=== PATIENT | female | born 1975 | race Caucasian/White ===

== ENCOUNTER → 2021-08-28 12:55 | Outpatient (CLI) | payer OTHER, SELFPAY ==
--- NOTE | 2021-08-28 | DI.US.S_ITS ---
ULTRASOUND OF RIGHT BREAST: 08/28/2021 CLINICAL: Patient returns today to evaluate a focal asymmetry in the right breast + area pain/palp. Comparison is made to exams dated: 08/28/2021 mammogram - [facility], 06/24/2021 mammogram, 12/13/2019 mammogram - [facility], and 07/11/2016 mammogram - [facility]. Color flow and real-time ultrasound of the right breast were performed. So scale images of the real-time examination were reviewed. There is a 0.6 cm x 0.2 cm x 0.4 cm oval cyst with thin septated internal calle in the right breast at 5 o'clock posterior depth 9 cm from the nipple. This oval cyst is hypoechoic with internal echoes and no posterior acoustic shadowing or enhancement. This correlates with mammography findings. Color flow imaging demonstrates that there is no vascularity present. IMPRESSION: PROBABLY BENIGN The 0.6 cm x 0.2 cm x 0.4 cm oval cyst in the right breast likely represents a complicated cyst and is probably benign. A follow-up right mammogram and an ultrasound in 6 months is recommended to demonstrate stability. There is no abnormality seen in the right breast to correspond with the area of clinical concern, palpable abnormality, and pain at 12 o'clock, however, recommend clinical follow up for persistent or worsening symptoms, or development of any clinically suspicious findings. Additionally, patient has an elevated lifetime risk for breast cancer of greater than 20%. Recommend consideration for screening breast MRI with contrast as an adjunct to screening mammography. Findings and recommendations were conveyed to the patient during today's evaluation. This exam was interpreted at Station ID: [id number]. Electronically Signed By: Rashard Aden M.D. aty/:08/28/2021 14:43:00 letter sent: Followup Recommended Ultrasound BI-RADS: 3 Probably benign
--- NOTE | 2021-08-28 | DI.MG.S_ITS ---
UNILATERAL RIGHT DIGITAL DIAGNOSTIC MAMMOGRAM 3D/2D WITH ADDITIONAL VIEWS: 08/28/2021 CLINICAL: Additional evaluation requested from prior study./ Right breast pain. Comparison is made to exams dated: 06/24/2021 mammogram, 12/13/2019 mammogram - [facility], and 07/11/2016 mammogram - [facility]. The tissue of right breast is extremely dense, which lowers the sensitivity of mammography. Redemonstration of previously described 0.6 cm oval focal asymmetry in the right breast at 5 o'clock posterior depth. This is seen in additional views and appears more prominent compared to previous screening mammogram dated 2019. No other significant masses or calcifications are seen in the breast. IMPRESSION: INCOMPLETE: NEEDS ADDITIONAL IMAGING EVALUATION The 0.6 cm oval focal asymmetry in the right breast resembles a cyst or a lymph node and is indeterminate. An ultrasound is recommended for further evaluation and is scheduled to immediately follow this examination. There is no abnormality seen in the right breast to correspond with the area of clinical concern, palpable abnormality, and pain indicated by square marker at 12 o'clock. An ultrasound is recommended for further evaluation and is scheduled to immediately follow this examination. This exam was interpreted at Station ID: [id number]. NOTE: For mammograms, a report in lay terms will be sent to the patient. Approximately 15% of breast malignancies will not be visualized mammographically. In the management of a palpable breast mass, a negative mammogram must not discourage biopsy of a clinically suspicious lesion. Electronically Signed By: Rashard Aden M.D. aty/:08/28/2021 14:39:20 ACR BI-RADS Category 0: Incomplete [id number]
== END ==
PROVIDERS: PCP Nurse Practitioner Family; Referring Provider Nurse Practitioner Family; Visit Provider Nurse Practitioner Family
DX: R92.8 Other abnormal and inconclusive findings on diagnostic imaging of breast (principal); N60.01 Solitary cyst of right breast
CPT/HCPCS: 76642; 77065; G0279

== ENCOUNTER → 2022-04-19 10:13 | Outpatient (CLI) | payer OTHER, SELFPAY ==
--- NOTE | 2022-04-19 | DI.US.S_ITS ---
ULTRASOUND OF RIGHT BREAST: 04/19/2022 CLINICAL: Patient returns for a 6 month follow up of the right breast. Comparison is made to exams dated: 04/19/2022 mammogram, 08/28/2021 ultrasound, and 08/28/2021 mammogram - [facility]. Color flow ultrasound of the right breast was performed on the areas of interest. So scale images of the real-time examination were reviewed. There is a cyst in the right breast at 5 o'clock posterior depth. This cyst is anechoic. This abnormality is decreased in size and correlates with mammography findings. Color flow imaging demonstrates that there is no vascularity present. IMPRESSION: BENIGN The cyst in the right breast is benign. Return to annual mammogram screening schedule is recommended. This exam was interpreted at Station ID: [id number]. Electronically Signed By: Carly suh/:04/19/2022 11:14:25 letter sent: Normal Exam Ultrasound BI-RADS: 2 Benign
--- NOTE | 2022-04-19 | DI.MG.S_ITS ---
UNILATERAL RIGHT DIGITAL DIAGNOSTIC MAMMOGRAM 3D/2D: 04/19/2022 CLINICAL: Short term follow up of the right breast. Comparison is made to exams dated: 08/28/2021 ultrasound, 08/28/2021 mammogram - [facility], 12/13/2019 mammogram, and 06/24/2021 mammogram - [facility]. The right breast is extremely dense, which lowers the sensitivity of mammography (category d />75% glandular tissue). The focal asymmetry in the right breast at 5 o'clock posterior depth is decreased in size. No other significant masses or calcifications are seen in the breast. IMPRESSION: INCOMPLETE: NEEDS ADDITIONAL IMAGING EVALUATION The focal asymmetry in the right breast is indeterminate. A targeted ultrasound of the right breast is recommended and will be performed immediately following this exam. Based on Tyrer-Cuzick model (a risk assessment model), the patient's lifetime risk is 23.1% and her 10 year risk is 4.4%. If a patient has an elevated risk, a more comprehensive evaluation should be considered and/or a referral to a genetic counselor. The [place] [employer], [employer], and NCCN Guidelines advise the consideration of Breast MRI as an adjunct to screening mammography in patients whose Lifetime risk to develop breast cancer is 20% or higher. This exam was interpreted at Station ID: [id number]. NOTE: For mammograms, a report in lay terms will be sent to the patient. Approximately 15% of breast malignancies will not be visualized mammographically. In the management of a palpable breast mass, a negative mammogram must not discourage biopsy of a clinically suspicious lesion. Electronically Signed By: Carly Fenton M.D. lk/:04/19/2022 11:13:14 ACR BI-RADS Category 0: Incomplete [id number]
== END ==
PROVIDERS: PCP Nurse Practitioner Family; Referring Provider Nurse Practitioner Family; Visit Provider Nurse Practitioner Family
DX: R92.8 Other abnormal and inconclusive findings on diagnostic imaging of breast (principal); N60.01 Solitary cyst of right breast
CPT/HCPCS: 76642; 77065; G0279